=== PATIENT | male | born 1950 | race African-American/Black ===

== ENCOUNTER → 2016-11-13 | Outpatient (CLI) | payer MEDICARE, MEDICAID ==
[~2016-11-13] MED LIST: ACET-784 PO; APIX5TAB PO; ASPI-556 PO; BACL10TA PO; BISA10S PR; CARV3 PO; CARV3.1262 PO; CYCL10 PO; DIVA250T25 PO; DOC Q LACE PO; DOCU250C91 PO; ESCI10TA PO; FAMO20 PO; HYDR-309 PO; LEVE250T55 PO; LISI-660 PO; LORA1TAB3 PO; METH1ADH6 TP; OMEP20 PO; ONDA22I IM; ONDA4 PO; OXYC5 PO; PHEN100C23 PO; QUET100T PO; SIMV-260 PO
[2016-11-13 10:47] VITALS: BP 112/67
== END | disposition home or self-care (01) ==
LOC: SRCNTR 10:44
PROVIDERS: ATTEND Internal Medicine Cardiovascular Disease
DX: I11.0 Hypertensive heart disease with heart failure (principal); I50.9 Heart failure, unspecified; I42.9 Cardiomyopathy, unspecified; E78.5 Hyperlipidemia, unspecified; B19.20 Unspecified viral hepatitis C without hepatic coma; Z95.0 Presence of cardiac pacemaker; Z86.718 Personal history of other venous thrombosis and embolism; Z95.828 Presence of other vascular implants and grafts
CPT/HCPCS: G0463

== ENCOUNTER → 2017-01-18 | Outpatient (CLI) | payer MEDICARE, MEDICAID ==
[~2017-01-18] MED LIST changes: -CARV3 PO; -DOC Q LACE PO; -ESCI10TA PO; -LISI-660 PO; -LORA1TAB3 PO; -OMEP20 PO; -ONDA22I IM; -OXYC5 PO
[2017-01-18 14:03] VITALS: BP 104/71
== END | disposition home or self-care (01) ==
LOC: SRCNTR 13:52
PROVIDERS: ATTEND Internal Medicine Cardiovascular Disease
DX: I11.0 Hypertensive heart disease with heart failure (principal); I50.9 Heart failure, unspecified; E78.5 Hyperlipidemia, unspecified; I42.8 Other cardiomyopathies; F19.10 Other psychoactive substance abuse, uncomplicated; F25.9 Schizoaffective disorder, unspecified; Z86.19 Personal history of other infectious and parasitic diseases; Z86.718 Personal history of other venous thrombosis and embolism; Z95.828 Presence of other vascular implants and grafts; Z95.0 Presence of cardiac pacemaker
CPT/HCPCS: G0463

== ENCOUNTER → 2017-09-12 | Outpatient (CLI) | payer MEDICARE, MEDICAID ==
[~2017-09-12] MED LIST changes: +LORA2TAB2 PO; +OXYC10 PO
[2017-09-12 10:26] VITALS: BP 124/81
== END | disposition home or self-care (01) ==
LOC: SRCNTR 10:08
PROVIDERS: ATTEND Internal Medicine Cardiovascular Disease
DX: I50.9 Heart failure, unspecified (principal); I49.3 Ventricular premature depolarization; E78.5 Hyperlipidemia, unspecified; B19.20 Unspecified viral hepatitis C without hepatic coma; I42.9 Cardiomyopathy, unspecified; Z79.82 Long term (current) use of aspirin; Z88.0 Allergy status to penicillin; Z95.810 Presence of automatic (implantable) cardiac defibrillator
CPT/HCPCS: 93005; G0463

== ENCOUNTER → 2017-10-02 | Outpatient (CLI) | payer MEDICARE, MEDICAID ==
[~2017-10-02] MED LIST changes: -APIX5TAB PO; -BACL10TA PO; -DIVA250T25 PO; -FAMO20 PO; -LEVE250T55 PO; -METH1ADH6 TP; -ONDA4 PO; -PHEN100C23 PO
[2017-10-02 10:47] VITALS: BP 130/75
== END | disposition home or self-care (01) ==
LOC: SRCNTR 10:28
PROVIDERS: ATTEND Internal Medicine Clinical Cardiac Electrophysiology
DX: Z45.02 Encounter for adjustment and management of automatic implantable cardiac defibrillator (principal); I11.0 Hypertensive heart disease with heart failure; I50.9 Heart failure, unspecified; F32.9 Major depressive disorder, single episode, unspecified; F20.9 Schizophrenia, unspecified; E78.00 Pure hypercholesterolemia, unspecified; Z79.82 Long term (current) use of aspirin; Z88.0 Allergy status to penicillin
CPT/HCPCS: G0463

== ENCOUNTER → 2017-11-23 | Outpatient (CLI) | payer MEDICARE, MEDICAID ==
[2017-11-23 11:34] VITALS: BP 124/83
== END | disposition home or self-care (01) ==
LOC: SRCNTR 11:06
PROVIDERS: ATTEND Internal Medicine Cardiovascular Disease
DX: I50.9 Heart failure, unspecified (principal); I42.9 Cardiomyopathy, unspecified; E78.5 Hyperlipidemia, unspecified; B19.20 Unspecified viral hepatitis C without hepatic coma; Z79.82 Long term (current) use of aspirin; Z88.0 Allergy status to penicillin; Z95.810 Presence of automatic (implantable) cardiac defibrillator
CPT/HCPCS: G0463

== ENCOUNTER → 2018-02-08 | Outpatient (CLI) | payer MEDICARE, MEDICAID ==
[~2018-02-08] MED LIST changes: -CYCL10 PO
[2018-02-08 11:29] VITALS: BP 120/72
== END | disposition home or self-care (01) ==
LOC: SRCNTR 10:48
PROVIDERS: ATTEND Internal Medicine Clinical Cardiac Electrophysiology
DX: Z45.02 Encounter for adjustment and management of automatic implantable cardiac defibrillator (principal); I11.0 Hypertensive heart disease with heart failure; I50.9 Heart failure, unspecified; I42.9 Cardiomyopathy, unspecified; F32.9 Major depressive disorder, single episode, unspecified; F20.9 Schizophrenia, unspecified; E78.00 Pure hypercholesterolemia, unspecified
CPT/HCPCS: G0463

== ENCOUNTER → 2018-02-13 | Outpatient (CLI) | payer MEDICARE, MEDICAID ==
[2018-02-13 11:25] VITALS: BP 134/91
== END | disposition home or self-care (01) ==
LOC: SRCNTR 10:52
PROVIDERS: ATTEND Internal Medicine Cardiovascular Disease
DX: Z45.02 Encounter for adjustment and management of automatic implantable cardiac defibrillator (principal); I50.9 Heart failure, unspecified; F25.9 Schizoaffective disorder, unspecified; I48.0 Paroxysmal atrial fibrillation; I25.5 Ischemic cardiomyopathy; Z86.19 Personal history of other infectious and parasitic diseases; Z95.0 Presence of cardiac pacemaker
CPT/HCPCS: G0463

== ENCOUNTER → 2018-03-18 | Outpatient (CLI) | payer MEDICARE, MEDICAID ==
[~2018-03-18] MED LIST changes: +APIX5TAB PO; +FURO40 PO
[2018-03-18 11:01] VITALS: BP 120/70
== END | disposition home or self-care (01) ==
LOC: SRCNTR 10:57
PROVIDERS: ATTEND Internal Medicine Cardiovascular Disease
DX: I11.0 Hypertensive heart disease with heart failure (principal); I50.9 Heart failure, unspecified; I42.9 Cardiomyopathy, unspecified; F25.9 Schizoaffective disorder, unspecified; I48.0 Paroxysmal atrial fibrillation; E78.5 Hyperlipidemia, unspecified; Z95.810 Presence of automatic (implantable) cardiac defibrillator
CPT/HCPCS: G0463

== ENCOUNTER → 2018-05-15 | Outpatient (CLI) | payer MEDICARE, MEDICAID ==
[2018-05-15 10:21] VITALS: BP 116/77
== END | disposition home or self-care (01) ==
LOC: SRCNTR 10:15
PROVIDERS: ATTEND Internal Medicine Cardiovascular Disease
DX: Z45.02 Encounter for adjustment and management of automatic implantable cardiac defibrillator (principal); I13.0 Hypertensive heart and chronic kidney disease with heart failure and stage 1 through stage 4 chronic kidney disease, or unspecified chronic kidney disease; N18.9 Chronic kidney disease, unspecified; I50.9 Heart failure, unspecified; I48.0 Paroxysmal atrial fibrillation; F25.9 Schizoaffective disorder, unspecified; E78.5 Hyperlipidemia, unspecified; I42.9 Cardiomyopathy, unspecified; I25.10 Atherosclerotic heart disease of native coronary artery without angina pectoris; E78.00 Pure hypercholesterolemia, unspecified
CPT/HCPCS: G0463

== ENCOUNTER → 2018-05-22 | Outpatient (CLI) | payer MEDICARE, MEDICAID ==
[2018-05-22 12:55] VITALS: BP 119/80
== END | disposition home or self-care (01) ==
LOC: SRCNTR 10:46
PROVIDERS: ATTEND Internal Medicine Cardiovascular Disease
DX: Z45.018 Encounter for adjustment and management of other part of cardiac pacemaker (principal)
CPT/HCPCS: G0463

== ENCOUNTER → 2018-07-22 | Outpatient (CLI) | payer MEDICARE, MEDICAID ==
[2018-07-22 10:46] VITALS: BP 116/71
== END | disposition home or self-care (01) ==
LOC: SRCNTR 10:14
PROVIDERS: ATTEND Internal Medicine Cardiovascular Disease
DX: I48.0 Paroxysmal atrial fibrillation (principal); I42.9 Cardiomyopathy, unspecified; F25.9 Schizoaffective disorder, unspecified; I50.9 Heart failure, unspecified; E78.5 Hyperlipidemia, unspecified; Z95.810 Presence of automatic (implantable) cardiac defibrillator; Z86.19 Personal history of other infectious and parasitic diseases
CPT/HCPCS: G0463

== ENCOUNTER → 2018-09-17 | Outpatient (CLI) | payer MEDICARE, MEDICAID ==
[~2018-09-17] MED LIST changes: -ASPI-556 PO; -DOCU250C91 PO; -SIMV-260 PO
[2018-09-17 14:57] VITALS: BP 109/80
== END | disposition home or self-care (01) ==
LOC: SRCNTR 14:11
PROVIDERS: ATTEND Internal Medicine Cardiovascular Disease
DX: E78.5 Hyperlipidemia, unspecified (principal); I48.91 Unspecified atrial fibrillation; I13.0 Hypertensive heart and chronic kidney disease with heart failure and stage 1 through stage 4 chronic kidney disease, or unspecified chronic kidney disease; N18.9 Chronic kidney disease, unspecified; I50.9 Heart failure, unspecified; J44.9 Chronic obstructive pulmonary disease, unspecified
CPT/HCPCS: G0463

== ENCOUNTER → 2018-09-27 | Outpatient (CLI) | payer MEDICARE, MEDICAID ==
[2018-09-27 12:19] VITALS: BP 122/76
== END | disposition home or self-care (01) ==
LOC: SRCNTR 10:29
PROVIDERS: ATTEND Internal Medicine Cardiovascular Disease
DX: Z45.018 Encounter for adjustment and management of other part of cardiac pacemaker (principal)
CPT/HCPCS: G0463

== ENCOUNTER → 2019-09-23 | Outpatient (CLI) | payer MEDICARE, MEDICAID ==
[~2019-09-23] MED LIST changes: -BISA10S PR; +BISA10SU11 PR; +LORA-1001 PO; -LORA2TAB2 PO; -OXYC10 PO; +OXYC10TA59 PO
[2019-09-23 11:25] VITALS: BP 99/71
== END | disposition home or self-care (01) ==
LOC: SRCNTR 11:23
PROVIDERS: ATTEND Internal Medicine Clinical Cardiac Electrophysiology
DX: I11.0 Hypertensive heart disease with heart failure (principal); I50.9 Heart failure, unspecified; I11.9 Hypertensive heart disease without heart failure; E78.5 Hyperlipidemia, unspecified; G89.4 Chronic pain syndrome; B19.20 Unspecified viral hepatitis C without hepatic coma; F25.9 Schizoaffective disorder, unspecified; Z86.718 Personal history of other venous thrombosis and embolism
CPT/HCPCS: G0463

== ENCOUNTER → 2019-10-07 | Outpatient (CLI) | payer MEDICARE, MEDICAID ==
[~2019-10-07] MED LIST changes: -HYDR-309 PO
[2019-10-07 12:13] VITALS: BP 125/80
== END | disposition home or self-care (01) ==
LOC: SRCNTR 11:43
PROVIDERS: ATTEND Internal Medicine Clinical Cardiac Electrophysiology
DX: Z45.018 Encounter for adjustment and management of other part of cardiac pacemaker (principal); I50.9 Heart failure, unspecified; I25.5 Ischemic cardiomyopathy; F25.9 Schizoaffective disorder, unspecified; I48.0 Paroxysmal atrial fibrillation; E78.5 Hyperlipidemia, unspecified; Z95.810 Presence of automatic (implantable) cardiac defibrillator; Z86.19 Personal history of other infectious and parasitic diseases
CPT/HCPCS: G0463